=== PATIENT | male | born 1950 | race Caucasian/White ===

== ENCOUNTER 2016-11-29 05:55 | Inpatient (IN) ==
[2016-11-29 06:20] LABS: MANUAL DIFF NEEDED? NO
[2016-11-29 06:25] LABS: BASO% 0.6 % (0.0-0.8); EOS# 0.08 X1000 (0.0-0.7); EOS% 0.6 % (0.0-10.0); HEMATOCRIT 48.1 % (42.0-52.0); HEMOGLOBIN 16.4 g/dL (14.0-18.0); IMM GRAN# 0.07 X1000 (0.0-0.04); IMM GRAN% 0.5 % (0.0-0.5); LYMPH# 1.37 X1000 (1.2-3.4); LYMPH% 9.5 % (20.5-51.1); MCH 30.2 PG (27-31); MCHC 34.1 g/dL (33-37); MCV 88.6 FL (81-99); MONO# 0.81 X1000 (0.11-0.59); MONO% 5.6 % (1.7-9.3); MPV 10.5 FL (7.4-10.4); NEUT% 83.2 % (42.2-75.2); PLT 204 X1000 (130-400); RBC 5.43 XMIL (4.7-6.1)
[2016-11-29 06:43] LABS: AGAP 16; ALBUMIN 4.6 g/dL (3.5-5.0); ALKALINE PHOSPHATASE 79 U/L (32-122); BUN 15 mg/dL (8-22); CALCIUM 9.2 mg/dL (8.8-10.2); CHLORIDE 94 mmol/L (98-107); CK PROFILE 88 U/L (24-204); COSMO 283; GOT 15 U/L (10-34); GPT 12 U/L (10-44); MAGNESIUM 1.9 mg/dL (1.5-2.7); POTASSIUM 4.7 mmol/L (3.5-5.1); SODIUM 134 mmol/L (136-145); TCO2 24 mmol/L (25-35); TOTAL BILIRUBIN 0.88 mg/dL (0.20-1.00); TOTAL PROTEIN 7.8 g/dL (6.3-8.3)
[2016-11-29] MEDS ORDERED: HUMALOG SUBQ ONE (07:02)
[2016-11-29] MEDS ORDERED: LANTUS SUBQ ONE (07:05)
--- NOTE | 2016-11-29 07:11 | PROVIDER DOCUMENTATION ---
HPI-General Adult - General Chief Complaint: Weakness Stated Complaint: weakness Time Seen by Provider: 11/29/16 06:33 Source: patient, EMS Unable to obtain history due to:: altered Allergies/Adverse Reactions: Patient Allergies Allergy/AdvReac Type Severity Reaction Status Date / Time No Known Allergies Allergy Verified 11/29/16 06:20 Home Medications: Home Medication List Medication Instructions Recorded Confirmed Last Taken Type Unobtainable [Home Meds 11/29/16 11/29/16 Unknown History Unobtainable] - History of Present Illness -Gen Adult Nature of Presenting Problems: 66 yo was found in his van by bystander and felt to be overheated. EMS was called and the pt transported to ER as he seemed confused but normothermic. He relates a long history of [email or web address] companies taking is house, car, pension and leaving him homeless and states that the " [place] nephrology social worker knows all about it" He was seen at the [facility] ER by Dr Kent on November 25 but thoses records are not yet available. Location of Pain/Injury: reports: none Quality of Pain: reports: none Context/Activities at Onset: reports: light activity Modifying Factors: improves with: nothing - Diabetes Related Context Context: reports: high blood sugar Review of Systems - Adult - REVIEW OF SYSTEMS - ADULT Constitutional: reports: weight gain Eyes: reports: no symptoms reported Ears, Nose, Mouth & Throat: reports: no symptoms reported Cardiovascular: reports: edema, orthopnea Respiratory: reports: chronic cough, dyspnea on exertion, shortness of breath Gastrointestinal: reports: no symptoms reported Genitourinary: reports: frequency, urgency Musculoskeletal: reports: no symptoms reported Integumentary: reports: no symptoms reported Neurological: reports: see HPI Psychiatric: reports: see HPI Endocrine: reports: see HPI, increased thirst, polyuria Hematologic/Lymphatic: reports: no symptoms reported Allergic/Immunologic: reports: no symptoms reported Past History - Adult - PAST MEDICAL HISTORY-ADULT Review of Records: reports: Nursing Assessment Review, Medications Reviewed Cardiovascular: reports: cardiac disease, CAD, CHF Respiratory: reports: bronchitis, COPD Gastrointestinal: reports: denies history Genitourinary: reports: kidney disease Musculoskeletal: reports: denies history Neurological: reports: denies history Psychiatric: reports: denies history Diabetes Type: Type 2 - PRIOR SURGERIES/PROCEDURES Surgical/Procedure History: reports: other (cardiac stent) Physical Exam-General - PHYSICAL EXAM-ADULT Initial Vital Signs Reviewed: Yes - CONSTITUTIONAL General Appearance: mild distress - EYES Eyes: PERRL/EOMI - HEAD, EARS, NOSE, MOUTH & THROAT HENMT: normal ENT inspection - NECK Neck: non-tender, full range of motion - RESPIRATORY Respiratory: lungs clear, normal breath sounds - CARDIOVASCULAR Cardiovascular: normal peripheral pulses, regular rate, rhythm, JVD, gallop/S3. negative: no edema, no gallop, no JVD - GASTROINTESTINAL (ABDOMEN) Abdominal Exam: normal bowel sounds - LYMPHATIC Lymphatic: no adenopathy - MUSCULOSKELETAL Back Exam: swelling Extremity: normal range of motion - NEUROLOGIC Neurologic: grossly normal - PSYCHIATRIC Psych/Mental Status: normal mood/affect Progress - PLAN OF CARE/RESULTS Progress/Plan/Lab Results: Vital Signs - 8 hr 11/29/16 06:11 Temperature 97.9 F Pulse Rate 90 Respiratory Rate 20 Blood Pressure 194/119 O2 Sat by Pulse Oximetry 93 L Laboratory Results - last 24 hr 11/29/16 11/29/16 11/29/16 06:05 06:05 06:05 WBC 14.37 H RBC 5.43 Hgb 16.4 Hct 48.1 MCV 88.6 MCH 30.2 MCHC 34.1 RDW Std Deviation 14.6 H Plt Count 204 MPV 10.5 H Immature Gran % (Auto) 0.5 Neut % (Auto) 83.2 H Lymph % (Auto) 9.5 L Stone % (Auto) 5.6 Eos % (Auto) 0.6 Baso % (Auto) 0.6 Immature Gran # (Auto) 0.07 H Neut # (Auto) 11.96 H Lymph # (Auto) 1.37 Stone # (Auto) 0.81 H Eos # (Auto) 0.08 Baso # (Auto) 0.08 Sodium 134 L Potassium 4.7 Chloride 94 L Carbon Dioxide 24 L Anion Gap 16 BUN 15 Creatinine 1.1 Estimated GFR/1.73 m2 > 60 BUN/Creatinine Ratio 14 Glucose 345 H Calculated Osmolality 283 Calcium 9.2 Magnesium 1.9 Total Bilirubin 0.88 AST 15 ALT 12 Alkaline Phosphatase 79 Creatine Kinase 88 Troponin T 0.283 H Oyh-I-Ujimtpvgqor Pept Total Protein 7.8 Albumin 4.6 Globulin 3.2 Albumin/Globulin Ratio 1.4 Plasma/Serum Ethyl Alc 11/29/16 11/29/16 06:05 06:05 WBC RBC Hgb Hct MCV MCH MCHC RDW Std Deviation Plt Count MPV Immature Gran % (Auto) Neut % (Auto) Lymph % (Auto) Stone % (Auto) Eos % (Auto) Baso % (Auto) Immature Gran # (Auto) Neut # (Auto) Lymph # (Auto) Stone # (Auto) Eos # (Auto) Baso # (Auto) Sodium Potassium Chloride Carbon Dioxide Anion Gap BUN Creatinine Estimated GFR/1.73 m2 BUN/Creatinine Ratio Glucose Calculated Osmolality Calcium Magnesium Total Bilirubin AST ALT Alkaline Phosphatase Creatine Kinase Troponin T Kne-Q-Ejsxmzpfaiy Pept 6722 H Total Protein Albumin Globulin Albumin/Globulin Ratio Plasma/Serum Ethyl Alc Orders Category Date Time Status CHEST-1 VIEW [RAD] Stat Exams 11/29/16 05:58 Taken ALCOHOL BLOOD Stat Lab 11/29/16 06:05 Completed CBC WITH ELECTRONIC DIFF [HEME] Stat Lab 11/29/16 06:05 Completed CK PROFILE [SP CHEM] Stat Lab 11/29/16 06:05 Completed CMP [COMPREHENSIVE METABOLIC PANEL] [CHEM] Stat Lab 11/29/16 06:05 Completed MAGNESIUM [CHEM] Stat Lab 11/29/16 06:05 Completed TROPONIN T Stat Lab 11/29/16 06:05 Completed pro-bnp [PRO B-NATRIURETIC PEPTIDE] Stat Lab 11/29/16 06:05 Completed Insulin Glargine [Lantus] Med 11/29/16 07:05 Once 30 unit SUBQ NOW ONE Insulin Lispro [Humalog] Med 11/29/16 07:02 Once 10 units SUBQ NOW ONE EKG [EKG] Stat Ther 11/29/16 05:57 Ordered Result Diagrams: 11/29/16 06:05 11/29/16 06:05 - XRAY 1 XRAY Study: Chest Impression: Abnormal XRAY Interpretation: chf - CONSULTS/PCP/HOSPITALIST Notification #1 *Consult/PCP/Hospitalist*: Dr Henriquez Time Discussed: 07:24 Consult Disposition: Will see in ED Departure - Departure Date of Disposition Decision: 11/29/16 Time of Disposition Decision: 07:25 DIAGNOSIS: Diabetes 1.5, managed as type 2, Psychosocial impairment Myocardial infarction Qualifiers: Involved coronary artery: unspecified coronary artery Disposition: ADMITTED INPATIENT 09 Certified Medical Emergency: Emergent Condition: Fair Referrals and Follow-Ups: None,PCP [Primary Care Provider] - - Critical Care Note This patient required my direct & personal management of CC.: No
--- NOTE | 2016-11-29 07:12 | Diag Imaging Result Doc PS360 ---
EXAM: CHEST-1 VIEW HISTORY: weakness TECHNIQUE: Portable upright AP COMPARISON: None. FINDINGS: The lungs are well expanded. The heart is mildly enlarged. The vessels are not distended. No consolidation. No pleural effusions identified. IMPRESSION: Cardiomegaly.. Electronically signed by Kamaljit Brian 11/29/2016 7:10 AM
[2016-11-29] MEDS ORDERED: LASIX IV ONE (07:28)
[2016-11-29] MEDS ORDERED: DUONEB (A & A) INH PRN (07:48)
[2016-11-29] MEDS ORDERED: ASPIRIN PO STA (07:48)
[2016-11-29 10:39] LABS: INR 1.1; PROTIME 11.6 Seconds (9.2-11.7)
[2016-11-29] MEDS ORDERED: LOVENOX SUBQ ONE (10:45)
[2016-11-29 11:03] LABS: HEMOGLOBIN A1C 8.9 % (4.8-6.0)
[2016-11-29 11:05] LABS: HDL 28 mg/dL (35-55); LDL 84 mg/dL; TRIGLYCERIDES 119 mg/dL (39-160); VLDL 24 mg/dL
--- NOTE | 2016-11-29 11:05 | CONSULTATION ---
DATE OF CONSULTATION: 11/29/2016 INDICATION: Elevated troponin and elevated proBNP. HISTORY OF PRESENT ILLNESS: Mr. Pelaez is a 66-year-old white male who is an extremely poor historian. Apparently in the recent time he has been homeless. He apparently called an EMS service for shortness of breath that has been progressing over the last 3-4 days. He says he has been chronically short of breath ever since he had stents placed in 2012. Previously followed with Dr. Charis Cerna at [facility] but presently has seen the PA regarding this. He thinks his last appointment was 3-4 months ago or so. He reports noncompliance with his medications however this is not secondary to not getting medications. He says he has them in his possession, he has just not taking them. He does not smoke. He does not drink any alcohol that he reports. He has not had any chest pain. He says he has had a lot of difficulty with the heat in the last few days and he thinks that is resulting in his current symptoms. We have no records previously on him from here nor from [facility]. PAST MEDICAL HISTORY: 1. Apparently the patient has hypertension. 2. Diabetes. 3. Presumed coronary disease with history of PCI but this is all via patient history. Presently, we are unaware of any history of heart failure but based on laboratories it certainly seems like he does. SOCIAL HISTORY: No current tobacco use. He quit in the 90s. He is currently homeless. FAMILY HISTORY: Significant for hypertension. REVIEW OF SYSTEMS: A 10 system review of systems is negative except for those things mentioned in HPI. PHYSICAL EXAMINATION: Afebrile. Heart rates in the 60s to 90s. Blood pressure when he came in was 194/119 with a 93% sat on room air. Presently is 174/122.General: No acute distress. HEENT: Oropharynx is moist. Poor dentition. Eye examination shows pink conjunctivae, white sclerae. Neck: Examination shows no obvious thyromegaly or thyroid tenderness. Cardiovascular: He sounds to be in a regular rate and rhythm. He has no obvious murmurs. He has no S3. He has trace lower extremity edema with cool distal lower extremities. Chest: Exam sounds relatively clear with no increased work of breathing. Abdomen: Soft, nontender, nondistended. He has no obvious organomegaly. Skin Exam: Warm and dry throughout with the exception of the cool distal lower extremities. He does have multiple excoriations to his bilateral feet. Psychiatric: He seems alert, oriented, pleasant. Normal mood and affect. Neurological: He is moving all extremities well. Cranial nerves 2-12 are intact without any sensation deficits. PERTINENT DATA: His white count is 14.4, hematocrit 48, platelet count is 204,000. Sodium is 134, potassium 4.7. His BUN is 15, creatinine is 1.1. Glucose 345. Magnesium level is 1.9. Troponin initially was 0.283. ProBNP 6722. He had a slight acetone level with a negative UDS and an albumin of 4.6. His EKG demonstrates what appears to be a nonspecific intraventricular conduction delay with a left bundle type pattern. His chest x-ray shows cardiomegaly with no clear evidence of pulmonary edema. ASSESSMENT: Elevated troponin with elevated proBNP. PLAN: We are obtaining records and have asked the Medical Records Department to obtain them stat from both [facility] as well as the PA. I believe most likely these issues are chronic in nature and he is not suffering an NSTEMI but I think we need to be absolutely certain. I have asked to obtain the EKG GAGANDEEP. His echo shows a reduced ejection fraction in the 25-30% range. It appears somewhat global in nature. I am unsure of the chronicity of this. I will initiate Entresto 24/ b.i.d. with the now dose this morning. He received a dose of Lasix this morning. I will give him supplemental Lovenox to give a 1 mg/kg dose this morning. We will ensure he is on aspirin. His lipids are currently pending in the lab. His UDS is pending as well. Again I have stressed to the Medical Records Department the necessity to obtain these old records in a stat fashion. cc: Aashish Simon MD
[2016-11-29 11:15] LABS: FREE T4 1.32 ng/dL (0.93-1.70)
[2016-11-29 11:28] LABS: URINE CULTURE NEEDED? NO; URINE MICRO REVIEW NEEDED? NO; URINE SOURCE CLEAN CATCH
[2016-11-29] MEDS: DUONEB (A & A) INH SCH ×4 (11:30→23:26)
[2016-11-29 11:36] LABS: BILIRUBIN URINE NEGATIVE (NEGATIVE); BLOOD URINE SMALL (NEGATIVE); COLOR YELLOW; GLUCOSE URINE >1000 mg/dL (NEGATIVE); LEUKOCYTES URINE NEGATIVE (NEGATIVE); NITRITE URINE NEGATIVE (NEGATIVE); PROTEIN URINE 100 mg/dL (NEGATIVE); SP GRAVITY URINE 1.022; TURBIDITY URINE CLEAR (CLEAR); UR EPITHELIAL CELLS <10 /HPF (<10); URINE BACTERIA NEGATIVE /HPF; URINE RBC <10 /HPF (<10); URINE WBC <10 /HPF (<10); UROBILINOGEN URINE NORMAL (NORMAL)
[2016-11-29 11:45] LABS: UR AMPHETAMINES QUAL NONE DETECTED (NONE DETECT); UR BARBITUATES QUAL NONE DETECTED (NONE DETECT); UR BENZODIAZEPIN QUAL NONE DETECTED (NONE DETECT); UR CANNABINOIDS QUAL NONE DETECTED (NONE DETECT); UR COCAINE QUAL NONE DETECTED (NONE DETECT); UR METHADONE QUAL NONE DETECTED (NONE DETECT); UR OPIATES QUAL NONE DETECTED (NONE DETECT); UR OXYCODONE QUAL NONE DETECTED (NONE DETECT); UR PCP QUAL NONE DETECTED (NONE DETECT)
[2016-11-29] MEDS: NITROGLYCERIN TOP SCH ×3 (12:22→20:36)
[2016-11-29] MEDS: ENTRESTO 24 MG-26 MG TABLET PO SCH ×2 (12:28→20:27)
[2016-11-29] MEDS: HUMALOG SUBQ SCH ×3 (12:29→20:29)
--- NOTE | 2016-11-29 14:46 | HISTORY AND PHYSICAL ---
CHIEF COMPLAINT: Shortness of breath and lower extremity edema. HISTORY OF PRESENT ILLNESS: Mr. Pelaez is a 66-year-old male with a history of coronary disease, status post myocardial infarction and stenting, congestive heart failure, hypertension, left upper extremity DVT on anticoagulant therapy who presents to our ER with shortness of breath and lower extremity edema. Unfortunately, Mr. krzysztof Pelaez has been essentially homeless for the past few weeks, he has been living in campgrounds, in his car and with friends. He is having financial difficulty at this time and is only able to take his medications every other day or sometimes more infrequent than that. He was found in his van today by a passerby who asked him if he was okay. He said he needed to come to the hospital because he was short of breath. He has been having worsening lower extremity edema. He was actually in another ER on Friday and was put on antibiotics for cellulitis. He reports a history of coronary disease with myocardial infarction requiring stenting by Dr. Charis Cerna in [facility]. He has not seen Dr. Cerna in around a year. He has been having worsening shortness of breath, lower extremity edema and orthopnea all consistent with congestive heart failure exacerbation. He denies any fever or chills. No dysuria and no abdominal pain. He has been reporting occasional chest pain with exertion. When he came to the ER he had labs and diagnostics done, he had a bit of a white count but his proBNP was noted to be almost 7000 with mildly elevated troponin and normal CK. His chest x-ray showed cardiomegaly and perhaps some mild vascular congestion but nothing acute. On physical exam, his lower extremities are edematous and he does crackles on auscultation. As such, he is going to be admitted to the [facility] for congestive heart failure exacerbation. PAST MEDICAL HISTORY: 1. Congestive heart failure, specific type unknown. 2. Coronary disease status post ID and stenting. 3. Hypertension. 4. Hyperlipidemia. 5. Diabetes mellitus type 2 requiring insulin. 6. Left upper extremity DVT on anticoagulation therapy. PAST SURGICAL HISTORY: He has had a left hip and femur repair and sebaceous cyst removed from his back. SOCIAL HISTORY: The patient is single and homeless. He is a and is currently having some type of legal situation with his home. He has a remote history of smoking. He denies current tobacco, alcohol or drug use. REVIEW OF SYSTEMS: A 14 point review of systems was obtained and found to be negative with the exception of the HPI. HOME MEDICATIONS: Currently being compiled. ALLERGIES: No known drug allergies. FAMILY HISTORY: Noncontributory. PHYSICAL EXAMINATION: VITAL SIGNS: Blood pressure is 174/122, heart rate is 74, respiratory rate is 27, O2 saturation is 99% on room air. Temperature is 97.9 degrees. GENERAL: This is a disheveled and overweight appearing 66-year-old male lying in hospital bed. No acute distress. NEUROLOGIC: The patient is awake, alert, and oriented. He follows commands without focal deficits. HEENT: Head is atraumatic and normocephalic. His pupils are equal, round, reactive to light. His oral mucosa is moist. Trachea is midline. No JVD or carotid bruits. CHEST: Bibasilar crackles. CV: Regular rate and rhythm. S1, S2 is noted. There is a 1/6 systolic murmur noted. GI: Soft nondistended nontender. Bowel sounds are positive. EXTREMITIES: 2+ pitting edema bilaterally. SKIN: Cool to touch. Pulses are diminished but palpable. DIAGNOSTIC DATA: Chest x-ray shows cardiomegaly and EKG shows left bundle branch block. WBC 14.37, hemoglobin 16.4, hematocrit 48.1, and platelet count 204,000. Sodium 134 , potassium 4.7, chloride 94, CO2 24, anion gap 16. BUN 15 and creatinine 1.1. Glucose is 345. Calcium is 9.2, magnesium 1.9. Bilirubin 0.88. AST 15, ALT 12, alkaline phosphatase 79. CK 88 , troponin 0.283. ProBNP 6722. Albumin 4.6. Alcohol level was 0. ASSESSMENT AND PLAN: 1. Acute on chronic congestive heart failure exacerbation: Patient will be admitted to the CICU where we will diurese him and optimize his medication. We will trend his enzymes and check another echocardiogram and consult Cardiology. Given his hypertension at this time we will also add some nitroglycerin topically. We will also give him an aspirin. 2. Elevated troponin: Nonspecific, likely secondary to his congestive heart failure exacerbation and overall fluid volume overload. However he does have some reports of chest pain so we are going to check an echocardiogram and consult with Cardiology and trend his enzymes. We will order 325 mg of aspirin and we will monitor closely. 3. Leukocytosis: No nidus of infection at this time. The patient is not tachycardic or febrile. We have ordered urinalysis but will not start any antibiotics at this time. We will also check blood cultures 4. Hyperglycemia with a history of diabetes mellitus: Patient does have a very mild acidosis with a gap of 16 so we cannot completely rule out DKA but he has been given insulin in the ER so this will likely improve those labs. However we will go ahead and check acetone level, hemoglobin A1c, thyroid function. We will start pattern sugars and sliding scale insulin. We may need to give him some basal insulin as well. 5. Hypertension: Currently compiling his medicines and will restart those once we have the list. 6. Left upper extremity DVT: Unclear the time frame, the patient does report that he takes some type of blood thinner possibly Eliquis and will restart those appropriately. 7. For prophylaxis we will start Lovenox for now and switch over to his home blood thinner once we have the name and dosage. We are also going to consult social work as the patient reports being homeless and will need significant outpatient resources. Further recommendations to follow. Dictated by COOKIE Alcantar for Lu Jha MD cc: COOKIE Alcantar MD Kelly Smith The patient was seen and examined by me. The imaging and laboratory studies were also reviewed. I agree with the assessment and plan as dictated. [facility]yler
--- NOTE | 2016-11-29 19:08 | ECHO REPORT ---
ORDER DATE: 11/29/2016 MEASUREMENTS: Left ventricular end-diastolic diameter 5.2, end systolic diameter 4.6, posterior wall thickness 1.1, septal thickness 1.7, left atrium 4.8, aortic root, 3.3. SUMMARY: 1. Adequate quality study. 2. Minimal sclerosis of trileaflet aortic valve demonstrated with normal aortic valve opening evident. Mitral, tricuspid and pulmonic valves are without structural abnormality with very mild mitral regurgitation, mild tricuspid regurgitation and mild pulmonic insufficiency. The estimated systolic PA pressure by Doppler is 65 mmHg. The aortic root is normal in size. 3. Normal left ventricular chamber size with borderline concentric left hypertrophy is demonstrated. Estimated left ejection fraction approximately 30% in the setting of global hypokinesis coupled with abnormal septal motion probably related to interventricular conduction abnormality. Doppler suggests grade 1 left ventricular diastolic dysfunction. The left atrium is mild to moderately enlarged. Right atrium, right ventricle are normal size with normal right ventricular systolic function. 4. No pericardial effusion. 5. Appearance of inferior vena cava suggests normal central venous pressure. 6. Sinus rhythm during study. cc: MD Zack Phillips CRNP
[2016-11-29] MEDS: LASIX IV SCH (20:27)
[2016-11-30] MEDS: NORCO-5 PO PRN ×2 (01:23→21:58)
[2016-11-30] MEDS: DUONEB (A & A) INH SCH ×6 (03:12→23:10)
[2016-11-30] MEDS: NITROGLYCERIN TOP SCH ×4 (04:23→21:45)
[2016-11-30 05:37] LABS: HEMATOCRIT 44.4 % (42.0-52.0); HEMOGLOBIN 15.6 g/dL (14.0-18.0); MCH 30.8 PG (27-31); MCHC 35.1 g/dL (33-37); MCV 87.7 FL (81-99); MPV 10.6 FL (7.4-10.4); RBC 5.06 XMIL (4.7-6.1)
[2016-11-30 06:06] LABS: AGAP 13; BUN 26 mg/dL (8-22); CALCIUM 8.8 mg/dL (8.8-10.2); CHLORIDE 100 mmol/L (98-107); COSMO 291; POTASSIUM 3.9 mmol/L (3.5-5.1); SODIUM 139 mmol/L (136-145); TCO2 26 mmol/L (25-35)
[2016-11-30] MEDS: HUMALOG SUBQ SCH ×2 (06:23→11:29)
[2016-11-30] MEDS: ENTRESTO 24 MG-26 MG TABLET PO SCH ×2 (08:39→21:45)
[2016-11-30] MEDS: ASPIRIN PO SCH (08:39)
[2016-11-30] MEDS: LASIX IV SCH (08:40)
[2016-11-30] MEDS ORDERED: LOVENOX SUBQ SCH ×2 (09:00→14:11)
--- NOTE | 2016-11-30 14:53 | PROGRESS NOTE ---
DATE: 11/30/2016 SUBJECTIVE: The patient is resting comfortably in bed. He states that he slept well and feels a lot better from a respiratory standpoint. He denies having any chest pain. OBJECTIVE: Vital Signs: Temperature 99.3 degrees, blood pressure 141/81, heart rate 68, respirations 20, O2 saturation is 100% on 3 L nasal cannula. General: This is a morbidly obese male, lying in bed in no acute distress. Head: Normocephalic, atraumatic. Heart: S1, S2. Normal. Regular rate and rhythm. Lungs: Equal air entry bilaterally. No crackles, no rales. Abdomen: Positive bowel sounds. Soft, obese, nontender, nondistended. Extremities: No edema. No cyanosis. No calf tenderness. Neurologic: The patient is alert and oriented x3. No focal neurologic deficits noted. LABS: White blood cell count 9, hemoglobin 15, hematocrit 44, platelets 192. Sodium 139, potassium 3.9, chloride 100, CO2 26, BUN 26, creatinine 1, glucose 259 and troponin 0.378. ASSESSMENT AND PLAN: 1. Acute on chronic systolic congestive heart failure exacerbation. The patient appears to be diuresing well. Continue on Lasix plus Entresto. We will also monitor the patient's volume status closely. 2. Uncontrolled insulin-dependent diabetes mellitus. We will start the patient on NPH 25 units subcutaneous twice a day. Continue with sliding scale coverage. 3. Coronary artery disease with a history of myocardial infarction and stent placement. Aware. Continue on the current cardiac medications as directed by the juvenile justice specialist. 4. Elevated troponin. The patient is currently chest pain-free. Will await further recommendations from the juvenile justice specialist. 5. Deep vein thrombosis prophylaxis. Will start the patient on Lovenox. cc: Lu Jha MD
[2016-11-30] MEDS: HUMULIN R SUBQ SCH ×2 (17:02→21:45)
[2016-11-30] MEDS: HUMULIN N SUBQ SCH (21:46)
[2016-12-01] MEDS: DUONEB (A & A) INH SCH ×6 (03:15→23:03)
[2016-12-01] MEDS: NITROGLYCERIN TOP SCH ×5 (04:31→21:52)
[2016-12-01] MEDS ORDERED: AYR NASAL SPRAY NAS PRN (04:50)
[2016-12-01 05:58] LABS: HEMATOCRIT 45.6 % (42.0-52.0); HEMOGLOBIN 15.7 g/dL (14.0-18.0); MCH 31.2 PG (27-31); MCHC 34.4 g/dL (33-37); MCV 90.5 FL (81-99); MPV 10.6 FL (7.4-10.4); RBC 5.04 XMIL (4.7-6.1)
[2016-12-01] MEDS: HUMULIN R SUBQ SCH ×5 (06:01→23:28)
[2016-12-01 06:22] LABS: AGAP 14; BUN 24 mg/dL (8-22); CALCIUM 9.1 mg/dL (8.8-10.2); CHLORIDE 100 mmol/L (98-107); COSMO 285; SODIUM 140 mmol/L (136-145); TCO2 26 mmol/L (25-35)
[2016-12-01] MEDS: HUMULIN N SUBQ SCH ×3 (08:36→23:28)
[2016-12-01] MEDS: LASIX PO SCH (08:36)
[2016-12-01] MEDS: ENTRESTO 24 MG-26 MG TABLET PO SCH ×3 (08:36→23:28)
[2016-12-01] MEDS: ASPIRIN PO SCH (08:36)
[2016-12-01] MEDS ORDERED: VITAMIN D PO SCH (09:00)
--- NOTE | 2016-12-01 15:50 | PROGRESS NOTE ---
DATE: 12/01/2016 SUBJECTIVE: The patient is sitting in a chair. He states that he feels a lot better. He no longer feels short of breath and the swelling in his legs has decreased. OBJECTIVE: Vital Signs: Temperature 98.6 degrees, blood pressure 121/68, heart rate 58, respirations 18, O2 saturation is 100% on 3 L nasal cannula. General: This is a morbidly obese male, sitting in a chair, in no acute distress. Head: Normocephalic, atraumatic. Heart: S1, S2. Normal. Regular rate and rhythm. Lungs: Clear to auscultation bilaterally. No crackles. No rales. Abdomen: Positive bowel sounds. Soft, nontender, nondistended. Extremities: No edema. No cyanosis. No calf tenderness. Neurologic: The patient is alert and oriented x3. LABS: Sodium 140, potassium 4, chloride 100, CO2 is 26, BUN 24, creatinine 0.9, glucose 122, magnesium 2, calcium 9.1. Vitamin D level 19. ASSESSMENT AND PLAN: 1. Acute on chronic systolic congestive heart failure exacerbation. Improved. The patient is now on oral Lasix and Entresto. Further management as per the phlebotomist medical lab assistant. 2. Elevated troponin. The patient is scheduled for a stress test tomorrow. 3. Vitamin D deficiency. Will start the patient on vitamin D replacement. 4. Diabetes mellitus type 2. Improved. Continue on NPH twice a day plus sliding scale insulin. 5. Morbid obesity. Aware. 6. Deep vein thrombosis prophylaxis. Continue on Lovenox. cc: Lu Jha MD
[2016-12-01] MEDS: ELIQUIS PO SCH ×2 (19:53→23:27)
[2016-12-02] MEDS: DUONEB (A & A) INH SCH ×6 (03:23→23:13)
[2016-12-02] MEDS: NITROGLYCERIN TOP SCH ×2 (04:03→11:49)
[2016-12-02 05:43] LABS: HEMATOCRIT 43.4 % (42.0-52.0); HEMOGLOBIN 14.6 g/dL (14.0-18.0); MCH 30.9 PG (27-31); MCHC 33.6 g/dL (33-37); MCV 91.9 FL (81-99); MPV 10.3 FL (7.4-10.4); RBC 4.72 XMIL (4.7-6.1)
[2016-12-02 06:15] LABS: AGAP 10; BUN 22 mg/dL (8-22); CALCIUM 9.1 mg/dL (8.8-10.2); CHLORIDE 102 mmol/L (98-107); COSMO 291; POTASSIUM 4.4 mmol/L (3.5-5.1); SODIUM 142 mmol/L (136-145); TCO2 30 mmol/L (25-35)
[2016-12-02] MEDS: HUMULIN R SUBQ SCH ×4 (07:44→21:02)
[2016-12-02] MEDS ORDERED: LEXISCAN ONE (09:43)
[2016-12-02] MEDS: LASIX PO SCH (11:49)
[2016-12-02] MEDS: ENTRESTO 24 MG-26 MG TABLET PO SCH ×2 (11:49→21:01)
[2016-12-02] MEDS: ELIQUIS PO SCH ×2 (11:49→21:01)
[2016-12-02] MEDS: ASPIRIN PO SCH (11:49)
[2016-12-02] MEDS: HUMULIN N SUBQ SCH ×2 (12:08→21:02)
--- NOTE | 2016-12-02 13:50 | Diag Imaging Result Doc PS360 ---
EXAM: CHEST-2 VIEWS HISTORY: pulmonary edema TECHNIQUE: COMPARISON: 11/29/2016 FINDINGS: The lungs are well expanded. Heart is not enlarged. Mild central vascular prominence. No pleural effusions. No pneumonia. IMPRESSION: No acute abnormality. Electronically signed by Kamaljit Brian 12/02/2016 1:48 PM
--- NOTE | 2016-12-02 13:52 | Diag Imaging Result Document ---
PROCEDURE NAME: MYOCARDIAL PERF SCAN, STR/REST - 12/02/2016 INDICATION: Coronary artery disease. Elevated troponin. PROCEDURES PERFORMED: 1. One-day stress rest myocardial perfusion imaging. 2. Lexiscan stress. PROCEDURE IN DETAIL: Mr. Pelaez was brought to the nuclear laboratory and had a resting study with injection of 15.6 mCi of technetium-99m sestamibi with usual imaging protocol utilized. He subsequently was brought down and had a Lexiscan stress and at peak stress was injected with 42.2 mCi of technetium-99m sestamibi with usual imaging protocol utilized. FINDINGS: 1. EKG shows sinus rhythm with a left bundle type pattern. Rate of 62 beats per minute. 2. Lexiscan stress did not demonstrate any clear evidence of ischemic related EKG changes or significant arrhythmias. PERFUSION IMAGING RESULTS: 1. No evidence of abnormal extracardiac uptake. 2. TID ratio 0.97. 3. Perfusion imaging shows a small size, mild intensity, largely fixed defect in the mid inferolateral and basal inferolateral segments. This is presumably secondary to scar. No evidence of ischemic changes. 4. Reduced ejection fraction of 39%. End-diastolic volume 185, end systolic 114. Global hypokinesis. There is some septal motion consistent with intraventricular conduction delay. cc: MD Henri Moody MD
--- NOTE | 2016-12-02 15:37 | PROGRESS NOTE ---
DATE: 12/02/2016 SUBJECTIVE: Mr. Pelaez reports he feels much better today. He has no chest pain. He is breathing much better. PHYSICAL EXAMINATION: Vital Signs: He is afebrile. His blood pressure most recently is 144/74. Pulse rates seem predominantly in the 60s. His I's and O's for this hospitalization have been -3.7 L. General: No acute distress. Cardiovascular: He sounds to be in a regular rate and rhythm. He has no obvious murmurs. He has no S3. No S4. No lower extremity edema. Chest: His chest exam sounds relatively clear. No increased work of breathing. Abdomen: Soft, nontender, nondistended. He has no obvious organomegaly. Skin: Warm and dry throughout. PERTINENT DATA: Laboratory data today shows sodium 142, potassium 4.4, BUN 22, creatinine 1.1. His magnesium level is 1.9. His CBC was reviewed. ASSESSMENT: 1. Ischemic cardiomyopathy. 2. Left bundle branch block. 3. Acute on chronic systolic heart failure. 4. Noncompliance with medical therapy. PLAN: I will stop the Imdur and add in a small dose of Coreg at 3.125 b.i.d. The patient apparently was able to tolerate 6.25 b.i.d. of Coreg in the past but we certainly would want to start at a lower dose considering his relative bradycardia. I believe he is approaching a point where he may be appropriate for discharge. I would continue him on the Entresto. I will ensure that he has a social service consultation in place related to his need for upcoming medications such as the Entresto. Presently, I have no further recommendations. His stress test did come back today and showed no evidence of any new ischemic findings. cc: Aashish Simon MD
--- NOTE | 2016-12-02 15:59 | PROGRESS NOTE ---
DATE: 12/02/2016 SUBJECTIVE: The patient has no focal complaints. OBJECTIVE: Vital Signs: Blood pressure 144/74, heart rate 68, respiratory rate 18, temperature 97.6 degrees, 100% on 3 L. Cardiovascular: Regular rate and rhythm. Pulmonary: Diminished breath sounds but I did not appreciate rales. Gastrointestinal: Soft, nontender, nondistended. Bowel sounds are positive. LABORATORY DATA: CBC okay. Basic was okay. Sugars have been overall improved. PROBLEM LIST: 1. Acute systolic heart failure. Actually has been transitioned to oral medications. I am going to switch his nitro paste to Imdur and we will follow. 2. Chest pain with elevated troponin. He underwent stress test today which was really almost negative. We will defer to Cardiology for other treatment options. He is on aspirin. He is on Eliquis. He is on Entresto. He is not on a beta-jasper. His heart rate I think is in the low 60s are already. 3. Diabetes appears to be fairly well-controlled. We will continue to monitor. DISPOSITION: I think he could probably go home soon, possibly tomorrow pending Cardiology's recommendations unless they have other recommendations. cc: Compa Venegas MD
[2016-12-02] MEDS: COREG PO SCH (21:01)
--- NOTE | 2016-12-02 21:45 | Extremity Venous Study ---
PROCEDURE NAME: Venous U/S Bilateral Arms - 12/01/2016 [employer]ABRICATOR [employer] FURNACE: Bambi. INDICATION: History of upper extremity DVT per the patient REQUESTING PHYSICIAN: Dr. Wong FINDINGS: The deep and superficial veins of bilateral upper extremities were visualized along their course. All veins appeared compressible with forward flow no evidence intraluminal thrombus. SUMMARY: No deep or superficial venous thrombosis in bilateral upper extremities. cc: MD Henri Clayton MD
[2016-12-03] MEDS: NORCO-5 PO PRN (01:03)
[2016-12-03] MEDS: COREG PO SCH ×3 (01:03→08:55)
[2016-12-03] MEDS: LOTRISONE CREAM TOP SCH ×2 (01:08→08:55)
[2016-12-03] MEDS: DUONEB (A & A) INH SCH ×4 (03:26→15:37)
[2016-12-03] MEDS ORDERED: BLISTEX MEDICATED BERRY LIP BALM TOP ONE (04:37)
[2016-12-03] MEDS: HUMULIN R SUBQ SCH ×2 (06:06→13:17)
[2016-12-03 06:46] LABS: HEMATOCRIT 45.7 % (42.0-52.0); HEMOGLOBIN 15.4 g/dL (14.0-18.0); MCH 31.1 PG (27-31); MCHC 33.7 g/dL (33-37); MCV 92.3 FL (81-99); RBC 4.95 XMIL (4.7-6.1)
[2016-12-03 07:10] LABS: AGAP 11; BUN 19 mg/dL (8-22); CALCIUM 9.5 mg/dL (8.8-10.2); CHLORIDE 100 mmol/L (98-107); COSMO 295; POTASSIUM 4.5 mmol/L (3.5-5.1); SODIUM 141 mmol/L (136-145); TCO2 30 mmol/L (25-35)
[2016-12-03] MEDS: ASPIRIN PO SCH (08:54)
[2016-12-03] MEDS: LASIX PO SCH (08:54)
[2016-12-03] MEDS: ENTRESTO 24 MG-26 MG TABLET PO SCH (08:55)
[2016-12-03] MEDS: ELIQUIS PO SCH (08:55)
[2016-12-03] MEDS ORDERED: PLAVIX PO SCH (09:00)
[2016-12-03] MEDS ORDERED: IMDUR PO SCH (09:00)
[2016-12-03] MEDS: HUMULIN N SUBQ SCH (09:08)
--- NOTE | 2016-12-03 11:53 | PROGRESS NOTE ---
DATE: 12/03/2016 SUBJECTIVE: Mr. Pelaez reports he feels much better. He is not having any shortness of breath. Denies any lower extremity edema. OBJECTIVE: Vital Signs: He is afebrile. Heart rates appear to be predominantly in the 50s. Blood pressure of 130/80. His I's and O's for the hospitalization have been -7.06 L. General: No acute distress. Cardiovascular: Regular rate and rhythm. No murmurs. No S3. No lower extremity edema. Warm and well perfused lower extremities. Chest: Clear bilaterally. No increased work of breathing. Abdomen: Soft, nontender, nondistended. No obvious organomegaly. Skin: Warm and dry throughout without any rashes. PERTINENT DATA: His white count is 7.6, hematocrit 45.7, platelet count 204,000. Sodium 141, potassium 4.5, BUN 19, creatinine 0.9. His proBNP is 506 which is down from a presenting level was 6722. ASSESSMENT: Acute on chronic systolic heart failure. PLAN: The patient seems to be in a much better state from a medication standpoint as well as from a heart failure standpoint. He appears euvolemic. In addition he presented with signs of low output with cool extremities which has completely resolved. His proBNP has dropped by a factor of roughly 10. His medication regimen has been revise significantly. He was not taking any of his prescribed medications at home. We re-initiated his Apixiban, aspirin, carvedilol at 6.25 b.i.d. and Entresto is a new medication for med . I have made him a followup appointment to see me within a month. From my standpoint, the patient can be discharged when stable from a medicine standpoint. He reports that he is currently in between residences but apparently will be residing with his sister. He thinks the [place] area may be a more appropriate area for his followup physicians. I have instructed him to follow up with the [facility] and hopefully he can be arranged with a passenger service agent in the area. We would be happy to take care of him if this is able to be done via the [facility]. cc: Aashish Simon MD
[2016-12-03 12:05] VITALS: BP 126/78
--- NOTE | 2016-12-03 16:26 | DISCHARGE SUMMARY ---
ADMISSION DATE: 11/29/2016 DISCHARGE DATE: 12/03/2016 CONSULTATIONS: Aashish Simon MD with Cardiology. PERTINENT PROCEDURES: 1. Bilateral upper extremity showed no deep or superficial venous thrombosis. 2. Echocardiogram showed an EF of 30% in the setting of global hypokinesis coupled with abnormal septal motion probably related to intraventricular conduction abnormality and grade 1 left ventricular diastolic dysfunction. Lexiscan did not demonstrate any clear evidence of ischemic related EKG changes or significant arrhythmias. Perfusion imaging shows a small size mild intensity, largely fixed defect in the mid inferolateral and basal inferolateral segments presumably secondary to scar, no evidence of ischemic changes, reduced EF of 39%, end- diastolic volume of 185, systolic 114, global hypokinesis, septal motion consistent with intraventricular conduction delay. DISCHARGE DIAGNOSES: 1. Acute on chronic systolic heart failure. The patient is now euvolemic. He will be discharged on Eliquis, aspirin, Coreg, Plavix, Lasix, and Entresto. 2. Chest pain with elevated troponin. He underwent a stress test that were essentially negative. He is now chest pain free. Stable. 3. Uncontrolled diabetes mellitus. Hemoglobin A1c of 8.9. The patient is being discharged on Humulin 70/30. 4. Vitamin D deficiency. Continue with supplementation. 5. Morbid obesity. Aware. Continue with healthy heart diet and exercise. 6. Left upper extremity Deep vein thrombus. Continue on Eliquis. HOSPITAL COURSE: Mr. Pelaez is a 66-year-old, male with a history of coronary artery disease status post NH and stenting, CHF, hypertension, left upper extremity DVT on Eliquis. He presented to the ED with shortness of breath, lower extremity edema. Unfortunately Mr. Pelaez has been essentially homeless for the past few weeks. He has been living [place] campgrounds, in his car, with friends and family. He states he is having financial difficulty and he has only been able to take his medications every other day or sometimes more infrequent than that. On the day of his admission he was found in his van by a passerby who asked if he was okay. He stated he needed to come to the hospital secondary to shortness of breath and worsening lower extremity edema. He reports that he normally sees a radio disc jockey, Charis Cerna, in [place] but he has not seen him in over a year. He also reported occasional chest pain with exertion. His proBNP was noted to be almost 7000 with a mildly elevated troponin and normal CK. Chest x-ray revealed cardiomegaly and mild vascular congestion. On physical examination his lower extremities were edematous. Patient was initially admitted to [facility] for congestive heart failure exacerbation, started on diuresis with a Cardiology consultation, trended his enzymes and placed him on aspirin. He was also found to be hyperglycemic with a history of diabetes. He was placed on pattern sugars with sliding scale insulin. Cardiology felt he was not suffering from non-STEMI. His echocardiogram did however show a reduced EF. He initiated him on Entresto at 24:26 b.i.d. and gave him some Lovenox 1 mg/kg and obtained medical records from [place] as well as the [place]. Upper extremity Dopplers did not show any DVT. His stress test showed no evidence of any new ischemic finding. Cardiology made new medication adjustments. He was diuresed to a euvolemic state. He has been instructed by Dr. Simon to follow up with the [facility] and hopefully he can be arranged to follow up with a radio disc jockey in this area. However, he will follow up with Dr. Simon in 4 weeks if this is able to be done via the [facility]. [employer] was also consulted to help the patient with his living situation. They have given him a list of homeless shelters. They have also spoken with his sister and given her this information as well. The have also given him a list of apartments in the area. Mr. Pelaez is appropriate for discharge home today with revision of his medications. VITAL SIGNS ON DISCHARGE: Temperature is 97.4 degrees, heart rate 58, respirations 18, pressure 130/80, O2 is 100% on room air. DISCHARGE DIET: Diabetic. DISCHARGE MEDICATIONS: 1. Eliquis 5 mg p.o. b.i.d. 2. Aspirin 81 mg p.o. daily. 3. Carvedilol 6.25 mg p.o. b.i.d. 4. Plavix 75 mg p.o. daily. 5. cream 1 application topical b.i.d. 6. Vitamin D 50,000 units p.o. q. 7 days. 7. Lasix 40 mg p.o. daily. 8. Humulin 70/30, 35 units subcutaneously b.i.d. 9. Entresto 26 mg 1 each p.o. b.i.d. FOLLOWUP: Mr. Pelaez is being discharged. He has being given a list of homeless shelters in the area as well as apartment listings. He will [facility]. [facility] also [facility] his primary radio disc jockey changed. He has been instructed to take his medications as prescribed, to monitor daily weights as well as his fluid intake. Patient can return to the ED for any worsening of symptoms. DISCHARGE TIME: 35 minutes. Dictated by COOKIE Ross for Compa Venegas MD cc: Compa Venegas MD pt examined, agree with above [facility]
== END 2016-12-03 16:21 | disposition home or self-care (01) ==
LOC: ED 05:55 → 3S 08:57 → SUATTDRO 08:57 → 3N 12-03 00:39
PROVIDERS: ATTEND Internal Medicine